=== PATIENT | female | born 1960 | race Caucasian/White ===

== ENCOUNTER 2024-12-26 07:50 | Emergency (ER) | payer BC, OTHER ==
[2024-12-26 08:24] VITALS: BP 146/71; PULSE 87; RESP 18; TEMP 98.4; BMI 33.6
[2024-12-26] MEDS ORDERED: ACETAMINOPHEN 500 MG TABLET (FP) ONE (09:57)
[2024-12-26] MEDS: ACETAMINOPHEN 500 MG TABLET (FP) PO ONE (10:00)
== END 2024-12-26 10:00 | disposition home or self-care (01) ==
LOC: JERFT 07:50 → JER 07:50 → JERFT 10:00
DX: M79.605 Pain in left leg (principal)
CPT/HCPCS: 93971-TC; 99284-25